=== PATIENT | female | born 1945 | race Caucasian/White ===

== ENCOUNTER 2017-06-07 10:02 | Emergency (ER) | payer OTHER, MEDICARE ==
[~2017-06-07] VITALS: Ht 165.1 cm; Wt 53.1 kg
[~2017-06-07 10:02] MED LIST: AFEDITAB CR30 MG PO; ANASTROZOLE1 MG PO; B-121000 MC2 PO; BENADRYL25 MG PO; CARBIDOPA-LEVO1 EA18 PO; CYANOCOBAL1000 MCG/2 IM; DULCOLAX5 MG PO; GABAPENTIN600 MG PO; METRONIDAZOLE500 MG PO; PRED FORTE100 DROP/5 LEFT EYE; PROLENSA1.6 ML BOTH EYES; TRAMADOL-ACETA1 EACH PO; VANCOCIN 250 M250 MG PO; VANCOMYCIN125 MG/2.5 PO; VITAMIN B-6100 MG PO; VITAMIN D31000 UNI2 PO
[2017-06-07 11:36] LABS: HEMATOCRIT 35.3 % (36.0-46.0); HEMOGLOBIN 11.9 G/DL (11.9-15.5); MCH 31.1 PG (29.0-34.0); MCHC 33.7 G/DL (30.0-36.0); MCV 92.2 FL (83-99); PLATELET COUNT 305 K/uL (156-360); RBC DIS.WIDTH-CV 13.4 % (11.8-14.6); RBC DIS.WIDTH-SD 45.4 % (39-53); RED BLOOD COUNT 3.83 M/uL (3.80-5.20); WHITE BLOOD COUNT 7.7 K/uL (4.1-10.2)
[2017-06-07 11:45] LABS: ALBUMIN 3.2 g/dL (3.2-4.8); CHLORIDE 107 mEq/L (99-109); POTASSIUM 3.8 mEq/L (3.7-5.4); SODIUM 138 mEq/L (136-147)
[2017-06-07 11:47] LABS: GLUCOSE 106 mg/dL (70-99); TOTAL PROTEIN 5.8 g/dL (6.4-8.3)
[2017-06-07 11:49] LABS: TOTAL BILIRUBIN 0.6 mg/dL (0.0-1.0)
[2017-06-07 11:51] LABS: ALKALINE PHOSPHATASE 63 IU/L (3-129); CREATININE 0.7 mg/dL (0.6-1.3); GFR ESTIMATE (CALCULATED) > 59 mL/min/
[2017-06-07 11:52] LABS: UREA NITROGEN (BUN) 23 mg/dL (9-23)
[2017-06-07 11:53] LABS: AST (GOT) 21 IU/L (2-34)
[2017-06-07 11:54] LABS: APPEARANCE CLEAR ((CLEAR)); BILIRUBIN NEGATIVE; BLOOD NEGATIVE; COLOR AMBER ((YELLOW)); GLUCOSE (STRIP) NEGATIVE; KETONES 5; LEUKOCYTES TRACE; NITRITE NEGATIVE; PROTEIN (STRIP) 30; UROBILINOGEN 0.2 MG/DL (0.2-1.0)
[2017-06-07 11:54] LABS: ALT (GPT) 31 IU/L (3-49); LIPASE 7 U/L (1.0-51.0)
[2017-06-07 12:12] LABS: BACTERIA RARE /HPF; CALCIUM OXALATE CRYSTALS 1+ /HPF; EPITHELIAL CELLS RARE /HPF; MUCUS TRACE /LPF; UCUL ADDED? YES; WHITE BLOOD CELLS 20-30 /HPF (0-5)
[2017-06-07] MEDS ORDERED: ZOFRAN4 MG PO (14:51)
[2017-06-07] MEDS ORDERED: KEFLEX500 MG PO (14:51)
[2017-06-07 15:17] VITALS: BP 138/88
== END 2017-06-07 15:22 | disposition home or self-care (01) ==
LOC: EME 10:02
PROVIDERS: Emergency Medicine
DX: N39.0 Urinary tract infection, site not specified (principal); G20 Parkinson's disease; F17.200 Nicotine dependence, unspecified, uncomplicated; Z85.3 Personal history of malignant neoplasm of breast; Z85.068 Personal history of other malignant neoplasm of small intestine; Z90.10 Acquired absence of unspecified breast and nipple
CPT/HCPCS: 74177; 80053; 81003; 83690; 85027; 87086; 99281; 99285; J0696; J2405; J7030